=== PATIENT | male | born 1980 | race Caucasian/White ===

== ENCOUNTER 2017-08-06 10:49 | Emergency (ER) | payer OTHER, MEDICAID ==
[~2017-08-06] VITALS: Ht 180.3 cm; Wt 136.1 kg
[2017-08-06] MEDS ORDERED: NAPROSYN500 MG PO (11:10)
[2017-08-06 11:22] VITALS: BP 131/82
== END 2017-08-06 11:22 | disposition home or self-care (01) ==
LOC: M.ERS 10:49
DX: S83.8X1A Sprain of other specified parts of right knee, initial encounter (principal); X58.XXXA Exposure to other specified factors, initial encounter; Y93.89 Activity, other specified; Y92.89 Other specified places as the place of occurrence of the external cause; Y99.8 Other external cause status